=== PATIENT | female | born 1970 ===

== ENCOUNTER 2018-06-28 08:46 | Outpatient (CLI) | payer OTHER | END 2018-06-28 08:50 | disposition home or self-care (01) | LOC: SONOGRAMA 08:46 | DX: E04.1 Nontoxic single thyroid nodule (principal) ==

== ENCOUNTER 2023-12-09 10:03 | Outpatient (CLI) | payer OTHER | END 2023-12-09 10:04 | disposition home or self-care (01) | LOC: NUCLEAR 10:03 | PROVIDERS: ATTEND Emergency Medicine Pediatric Emergency Medicine | DX: I87.2 Venous insufficiency (chronic) (peripheral) (principal); I83.90 Asymptomatic varicose veins of unspecified lower extremity ==